=== PATIENT | female | born 1945 | race Caucasian/White ===

== ENCOUNTER 2019-03-01 10:52 | Emergency (ER) | payer OTHER ==
[~2019-03-01] VITALS: Ht 157.5 cm; Wt 58.5 kg
[~2019-03-01 10:52] MED LIST: PREMPRO
--- NOTE | 2019-03-01 11:04 | NUR ---
PT WAS EVALUATED BY DR VILLARREAL. PT WAS D/C'd TO HOME. D/C INSTRUCTIONS GIVEN TO THE PT.
[2019-03-01 11:06] VITALS: BP 131/75
== END 2019-03-01 11:07 | disposition home or self-care (01) ==
LOC: ER 10:52
DX: L03.114 Cellulitis of left upper limb (principal); Z88.0 Allergy status to penicillin; Z88.2 Allergy status to sulfonamides; Z91.013 Allergy to seafood; Z79.899 Other long term (current) drug therapy
CPT/HCPCS: A4663

== ENCOUNTER 2019-11-09 17:20 | Emergency (ER) | payer OTHER ==
[~2019-11-09] VITALS: Ht 157.5 cm; Wt 58.1 kg
--- NOTE | 2019-11-09 17:38 | NUR ---
Dr. Mcintyre at bedside for MSE
[2019-11-09] MEDS ORDERED: CLINDAMYCIN HCL 150 MG CAPSULE ONE (17:55)
--- NOTE | 2019-11-09 17:56 | NUR ---
Patient discharged to home in stable condition. Written and verbal after care instructions given. Patient verbalizes understanding of instructions. Stressed follow up or return to ER for worsening s/s. Patient ambulating with steady gait. NAD Noted
[2019-11-09 17:59] VITALS: BP 135/76
[2019-11-09] MEDS ORDERED: CLINDAMYCIN HCL 150 MG CAPSULE PO ONE (18:00)
== END 2019-11-09 17:56 | disposition home or self-care (01) ==
LOC: ER 17:21
DX: L03.211 Cellulitis of face (principal); S00.86XA Insect bite (nonvenomous) of other part of head, initial encounter; W57.XXXA Bitten or stung by nonvenomous insect and other nonvenomous arthropods, initial encounter; Y92.89 Other specified places as the place of occurrence of the external cause; Z88.2 Allergy status to sulfonamides; Z91.030 Bee allergy status; Z88.0 Allergy status to penicillin; Z91.013 Allergy to seafood
CPT/HCPCS: A4663